=== PATIENT | male | born 1975 | race African-American/Black ===

== ENCOUNTER 2016-09-11 01:54 | Emergency (ER) | payer MEDICAID, OTHER ==
[~2016-09-11] VITALS: Ht 180.3 cm; Wt 78.0 kg
[~2016-09-11 01:54] MED LIST: AMLO10TA PO; BUPR300T70 PO; DIVA500T1 PO; LISI2.5T12 PO; OLAN5TAB29 PO; SERT50TA PO
[2016-09-11 02:05] VITALS: BP 151/105
--- NOTE | 2016-09-11 02:15 | NUR ---
PATIENT PRESENTS TO ED WITH C/O ANXEITY AND DIFFICULTY SLEEPING X 3 DAYS . PT DENIES N/V/D; SKIN IS PINK/WARM/DRY; AAOX4 WITH EVEN AND STEADY GAIT; LUNGS CLEAR BL; HR EVEN AND REGULAR; PT DENIES ANY FEVER, CP, SOB, OR COUGH AT THIS TIME; PATIENT STATES PAIN OF 0/10 AT THIS TIME; VSS; PATIENT POSITIONED FOR COMFORT; HOB ELEVATED; BEDRAILS UP X2; BED DOWN. ER MD MADE AWARE OF PT STATUS.
--- NOTE | 2016-09-11 02:15 | NUR ---
TO ER BED 8
--- NOTE | 2016-09-11 02:16 | NUR ---
Patient being evaluated by physician DR OWENS at bedside.
[2016-09-11 02:35] VITALS: BP 149/94
--- NOTE | 2016-09-11 02:35 | NUR ---
Patient discharged with v/s stable. Written and verbal after care instructions given and explained. Patient alert, oriented and verbalized understanding of instructions. Ambulatory with steady gait. All questions addressed prior to discharge. ID band removed. Patient advised to follow up with PMD. Rx of ATIVAN 0.5MG given. Patient educated on indication of medication including possible reaction and side effects. Opportunity to ask questions provided and answered.
== END 2016-09-11 02:36 | disposition home or self-care (01) ==
LOC: MED 01:54
DX: F41.9 Anxiety disorder, unspecified (principal); I10 Essential (primary) hypertension; Z79.899 Other long term (current) drug therapy; Z59.0 Homelessness
CPT/HCPCS: 99283

== ENCOUNTER 2016-09-17 15:48 | Emergency (ER) | payer MEDICAID ==
[~2016-09-17] VITALS: Ht 180.3 cm; Wt 77.1 kg
[2016-09-17 15:50] VITALS: BP 173/119
--- NOTE | 2016-09-17 15:50 | NUR ---
PT BIBA TO BED 5.
--- NOTE | 2016-09-17 15:54 | NUR ---
Note undone in EDM - 09/17/16 at 1704 by MEDSS 40 YO MALE NYA FROM FIELD C/O NOT FEELING WELL D/T USING METHAMPHETAMINE AT [facility] THIS MORNING. HX: HTN/PSYCH ISSUES; PT A&OX4, BLIND IN RT EYE, LEFT EYE PERRL, BL LUNG SOUNDS CLEAR, RR EVEN/UNLABORED, SKIN IS WARM/DRY/INTACT; PT STATES BL UPPER ABDOMINAL PAIN, ACHING, RADIATES TO LOWER BACK, 7/10 X 3 DAYS. STATES HAS NAUSEA, BUT DENIES VOMITING/DIARRHEA; ABDOMEN SOFT, NON-TENDER, ACTIVE BOWEL SOUNDS X 4 QUADRANTS; STEADY GAIT; PT RESTING IN BED W/ HOB ELEVATED AND IN LOWEST POSITION; POSITIONED FOR COMFORT; ER MD MADE AWARE OF STATUS. WILL CONTINUE TO MONITOR.
--- NOTE | 2016-09-17 15:54 | NUR ---
40 YO MALE BIBA FROM FIELD C/O NOT FEELING WELL D/T USING METHAMPHETAMINE AT [facility] THIS MORNING. HX: HTN/PSYCH ISSUES; PT A&OX4, BLIND IN RT EYE, LEFT EYE PERRL, PT STATES HEARS VOICES TELLING HIM " I NEED TO GET OFF THE STREETS"; DENIES ANY IDEAS OF SUICIDAL IDEATION, HURTING SELF OR OTHERS AT THIS TIME; PT DENIES "VOICES" TELLING PT TO HURT SELF OR OTHERS AT THIS TIME BL LUNG SOUNDS CLEAR, RR EVEN/UNLABORED, SKIN IS WARM/DRY/INTACT; PT STATES BL UPPER ABDOMINAL PAIN, ACHING, RADIATES TO LOWER BACK, 7/10 X 3 DAYS. STATES HAS NAUSEA, BUT DENIES VOMITING/DIARRHEA; ABDOMEN SOFT, NON-TENDER, ACTIVE BOWEL SOUNDS X 4 QUADRANTS; STEADY GAIT; PT RESTING IN BED W/ HOB ELEVATED AND IN LOWEST POSITION; POSITIONED FOR COMFORT; ER MD MADE AWARE OF STATUS. WILL CONTINUE TO MONITOR.
[2016-09-17] MEDS ORDERED: LORazepam 1 MG TAB PO ONE (16:05)
[2016-09-17 17:04] VITALS: BP 148/89
--- NOTE | 2016-09-17 17:04 | NUR ---
Patient discharged with BP 148/89; DENIES HEADACHE, DIZZINESS, OR BLURRY VISION AT THIS TIME; ER MD DR. VIDES NOTIFIED. PT D/C stable. Written and verbal after care instructions given and explained.Patient alert, oriented and verbalized understanding of instructions. Ambulatory with steady gait. All questions addressed prior to discharge. ID band removed. Patient advised to follow up with PMD. Rx of VISTARIL given. Patient educated on indication of medication including possible reaction and side effects. Opportunity to ask questions provided and answered.
== END 2016-09-17 17:04 | disposition home or self-care (01) ==
LOC: MED 15:48
DX: F41.9 Anxiety disorder, unspecified (principal); T43.625A Adverse effect of amphetamines, initial encounter; F15.280 Other stimulant dependence with stimulant-induced anxiety disorder; H54.41 Blindness, right eye, normal vision left eye; I12.9 Hypertensive chronic kidney disease with stage 1 through stage 4 chronic kidney disease, or unspecified chronic kidney disease; F32.9 Major depressive disorder, single episode, unspecified; N18.9 Chronic kidney disease, unspecified; F17.210 Nicotine dependence, cigarettes, uncomplicated; Z71.6 Tobacco abuse counseling; Z79.899 Other long term (current) drug therapy; Y92.89 Other specified places as the place of occurrence of the external cause
CPT/HCPCS: 99283

== ENCOUNTER 2016-10-23 18:42 | Emergency (ER) | payer MEDICAID ==
[~2016-10-23] VITALS: Ht 185.4 cm; Wt 71.7 kg
--- NOTE | 2016-10-23 18:42 | NUR ---
Patient was BIBA at this time.
[2016-10-23 19:02] VITALS: BP 158/113
--- NOTE | 2016-10-23 19:16 | NUR ---
PATIENT TO LOBBY.ERMD MADE AWARE.NO DISTRESS.DENIES VOMITING,DENIES DIZZINESS
--- NOTE | 2016-10-23 21:20 | NUR ---
PATIENT LEFT WITHOUT BEING SEEN BY DR. REYES. NO FURTHER CARE PROVIDED FOR PATIENT.
== END 2016-10-23 21:20 | disposition left against medical advice (07) ==
LOC: MED 18:42
DX: R51 Headache (principal); Z53.21 Procedure and treatment not carried out due to patient leaving prior to being seen by health care provider

== ENCOUNTER 2016-10-30 10:25 | Emergency (ER) | payer OTHER ==
[~2016-10-30] VITALS: Ht 180.3 cm; Wt 77.6 kg
[~2016-10-30 10:25] MED LIST changes: -AMLO10TA PO; -BUPR300T70 PO; +DEPAKOTE ER500 MG PO; -DIVA500T1 PO; -LISI2.5T12 PO; +NORVASC10 MG PO; -OLAN5TAB29 PO; -SERT50TA PO; +WELLBUTRIN XL300 MG PO; +ZESTRIL2.5 MG PO; +ZOLOFT50 MG PO; +ZYPREXA5 MG PO
[2016-10-30 10:41] VITALS: BP 155/98
--- NOTE | 2016-10-30 11:45 | NUR ---
40/M BIB SELF FOR REQUESTING MEDICATION REFILL LISINOPRIL 20MG PO QD; HX OF HTN, CHRONIC KIDNEY DISEASE, OD BLIDNESS, BIPOLAR, MANIC DEPRESSION. DENIES N/V/D; SKIN IS PINK/WARM/DRY; AAOX4 WITH EVEN AND STEADY GAIT; LUNGS CLEAR BL; HR EVEN AND REGULAR; PT DENIES ANY FEVER, CP, SOB, OR COUGH AT THIS TIME; PATIENT STATES PAIN OF 0/10 AT THIS TIME; VSS; PATIENT POSITIONED FOR COMFORT; HOB ELEVATED; BEDRAILS UP X2; BED DOWN. ER MD MADE AWARE OF PT STATUS.
[2016-10-30 11:56] VITALS: BP 155/98
--- NOTE | 2016-10-30 11:56 | NUR ---
Patient discharged with v/s stable. Written and verbal after care instructions given and explained. Patient alert, oriented and verbalized understanding of instructions. Ambulatory with steady gait. All questions addressed prior to discharge. ID band removed. Patient advised to follow up with PMD. Rx of LISINOPRIL given. Patient educated on indication of medication including possible reaction and side effects. Opportunity to ask questions provided and answered.
== END 2016-10-30 11:56 | disposition home or self-care (01) ==
LOC: MED 10:25
DX: Z76.0 Encounter for issue of repeat prescription (principal); I10 Essential (primary) hypertension; F31.9 Bipolar disorder, unspecified

== ENCOUNTER 2016-11-19 12:35 | Emergency (ER) | payer OTHER ==
[~2016-11-19] VITALS: Ht 180.3 cm; Wt 77.6 kg
[~2016-11-19 12:35] MED LIST changes: -DEPAKOTE ER500 MG PO; +LISI2.5T12 PO; -NORVASC10 MG PO; -WELLBUTRIN XL300 MG PO; -ZESTRIL2.5 MG PO; -ZOLOFT50 MG PO; -ZYPREXA5 MG PO
[2016-11-19 12:36] VITALS: BP 143/94
--- NOTE | 2016-11-19 12:40 | NUR ---
Patient to bed 04.
--- NOTE | 2016-11-19 12:45 | NUR ---
PT PRESENTS TO ER FOR EVALUATION OF DIARRHEA X9 DAYS. PT STATES HE WAS HOSPITALIZED 1 WEEK AGO FOR OD OF LISINOPRIL AND THORAZINE. HX PSYCH, HTN. DENIES N/V; SKIN IS PINK/WARM/DRY; AAOX4 WITH EVEN AND STEADY GAIT; LUNGS CLEAR BL; HR EVEN AND REGULAR; PT DENIES ANY FEVER, CP, SOB, OR COUGH AT THIS TIME; PATIENT STATES PAIN OF 4/10 AT THIS TIME; VSS; PATIENT POSITIONED FOR COMFORT; HOB ELEVATED; BEDRAILS UP X2; BED DOWN. ER MD MADE AWARE OF PT STATUS.
--- NOTE | 2016-11-19 12:46 | NUR ---
Dr. Morales evaluating patient at bedside.
[2016-11-19] MEDS ORDERED: NACL 0.9% 1,000 ML IV ONE (12:51)
[2016-11-19] MEDS ORDERED: DICYCLOMINE 20 MG/2 ML VIAL IM ONE (12:55)
[2016-11-19 13:51] LABS: HEMATOCRIT 39.9 % (36-52); HEMOGLOBIN 12.6 g/dL (12.0-18.0); MEAN CORPUSCULAR HEMOGLOBIN 26 pg (27-31); MEAN CORPUSCULAR HGB CONC 32 g/dL (33-37); MEAN CORPUSCULAR VOLUME 83 fL (80-94); PLATELET COUNT (AUTO) 257 K/uL (140-450); RED CELL DISTRIBUTION WIDTH 14.1 % (11.6-13.7); WHITE BLOOD COUNT (AUTO) 5.2 K/uL (4.8-10.8)
[2016-11-19 13:52] LABS: ALBUMIN 3.4 g/dL (3.4-5.0); ANION GAP 17.3 (8-16); CARBON DIOXIDE 20.7 mmol/L (21-32); CREATININE 2.6 mg/dL (0.7-1.3); TOTAL BILIRUBIN 0.3 mg/dL (0.0-1.0); TOTAL PROTEIN, SERUM 8.4 g/dL (6.4-8.2)
--- NOTE | 2016-11-19 14:11 | NUR ---
AAO PT RESTING COMFORTABLY USING CELL PHONE NO C/O PAIN AT THIS TIME ON MONITOR, WILL CONTINUE TO MONITOR
[2016-11-19 14:12] LABS: LYMPHOCYTES % (MANUAL) 28 % (20-46); MONOCYTES % (MANUAL) 5 % (5-12); NEUTROPHILS % (MANUAL) 67 (43-65); PLATELET ESTIMATE ADEQUATE
[2016-11-19 14:48] VITALS: BP 141/94
--- NOTE | 2016-11-19 14:48 | NUR ---
Patient discharged with v/s stable. Written and verbal after care instructions given and explained. Patient alert, oriented and verbalized understanding of instructions. Ambulatory with steady gait. All questions addressed prior to discharge. ID band removed. Patient advised to follow up with PMD. Rx of LOPERAMIDE, BENTYL, LISINOPRIL given. Patient educated on indication of medication including possible reaction and side effects. Opportunity to ask questions provided and answered.
== END 2016-11-19 14:48 | disposition home or self-care (01) ==
LOC: MED 12:35
CPT/HCPCS: 36415; 80053; 83690; 85025; 96360; 96372; 99285; J0500; J7030

== ENCOUNTER 2017-09-15 18:32 | Emergency (ER) | payer OTHER ==
[~2017-09-15] VITALS: Ht 180.3 cm; Wt 78.5 kg
[2017-09-15 18:36] VITALS: BP 152/112
--- NOTE | 2017-09-15 19:00 | NUR ---
PT AMBULATED TO BED3
--- NOTE | 2017-09-15 19:20 | NUR ---
ASSUMED CARE OF PT AT THIS TIME. C/O LEFT LOW BACK PAIN W/DYSURIA X 1 WEEK ROUNDING AND BACKING MACHINE OPERATOR. DENIES N/V/D; SKIN IS PINK/WARM/DRY; AAOX4 WITH EVEN AND STEADY GAIT; LUNGS CLEAR BL; HR EVEN AND REGULAR; PT DENIES ANY FEVER, CP, SOB, OR COUGH AT THIS TIME; PATIENT STATES PAIN OF 8/10 AT THIS TIME; VSS; PATIENT POSITIONED FOR COMFORT; HOB ELEVATED; BEDRAILS UP X2; BED DOWN. ER MD MADE AWARE OF PT STATUS.
[2017-09-15] MEDS ORDERED: KETOROLAC 60 MG/2 ML VIAL IM ONE (19:30)
[2017-09-15 19:45] VITALS: BP 148/99
--- NOTE | 2017-09-15 19:45 | NUR ---
Patient discharged with v/s stable. Written and verbal after care instructions given and explained. Patient alert, oriented and verbalized understanding of instructions. Ambulatory with steady gait. PT REFUSED TO SIGN DISCHARGE INSTRUCTIONS. ID band removed. Patient advised to follow up with PMD. Rx of MOTRIN given. Patient educated on indication of medication including possible reaction and side effects.
== END 2017-09-15 19:45 | disposition home or self-care (01) ==
LOC: MED 18:32
DX: M54.5 Low back pain (principal); I10 Essential (primary) hypertension; F17.210 Nicotine dependence, cigarettes, uncomplicated
CPT/HCPCS: 81002; 96372; 99283; J1885

== ENCOUNTER 2017-09-18 17:55 | Emergency (ER) | payer OTHER ==
[~2017-09-18] VITALS: Ht 180.3 cm; Wt 79.4 kg
[2017-09-18 17:57] VITALS: BP 158/90
--- NOTE | 2017-09-18 18:09 | NUR ---
Patient ambulated to chair A. RN evaluating patient.
--- NOTE | 2017-09-18 18:11 | NUR ---
Dr. Ojeda evaluating patient.
--- NOTE | 2017-09-18 18:13 | NUR ---
41Y/M BIB SELF FOR MEDICATION REFILL, HE LOST HIS MEDICATION PRESCRIPTION . ER MD MADE AWARE OF PT STATUS.
--- NOTE | 2017-09-18 18:26 | NUR ---
Patient discharged with v/s stable. Written and verbal after care instructions given and explained. Patient alert, oriented and verbalized understanding of instructions. Ambulatory with steady gait. All questions addressed prior to discharge. ID band removed. Patient advised to follow up with PMD. Rx of CLONAZEPAM given. Patient educated on indication of medication including possible reaction and side effects. Opportunity to ask questions provided and answered.
[2017-09-18 18:27] VITALS: BP 158/90
== END 2017-09-18 18:26 | disposition home or self-care (01) ==
LOC: MED 17:55
DX: F41.0 Panic disorder [episodic paroxysmal anxiety] (principal); Z76.0 Encounter for issue of repeat prescription; I10 Essential (primary) hypertension
CPT/HCPCS: 99283

== ENCOUNTER 2018-02-18 15:56 | Inpatient (IN) | payer OTHER ==
[~2018-02-18] VITALS: Ht 175.3 cm; Wt 73.9 kg
--- NOTE | 2018-02-18 07:25 | NUR ---
RUPERTO BOOKER PT OBSERVED TO BE SITTING UP & ATTEMPTING TO GET UP FROM BED. PT ORIENTED TO PRESENT, ASKED IF HE NEEDS ASSISTANCE, PT YELLED "I'M NOT AT THE HOSPITAL!" & YELLING OTHER UNINTELLIGIBLE WORDS WITH SOME PROFANITIES, & REMOVED HIS INTERMISSION COORDINATOR. WHILE TALKING TO PT, PT SWUNG BOTH ARMS OUT AT EMULSION COATER. PT STOOD UP FROM BED, PACING THE ROOM WITH VERY UNSTEADY GAIT, SWINGING HIS ARMS AT STAFF. RUPERTO BOOKER PAGED WHILE MAINTAINING PT SAFETY. NURSING CENTRALIZED TRAFFIC CONTROL OPERATOR, EVS PERSONNEL, RT, CHARGE NURSE ARRIVED AT BEDSIDE. PT WAS GUIDED TO THE BED BY STAFF VIA 2-PERSON MIN ASSIST. PT OBSERVED TO HAVE MUSCLE TREMORS, DISORIENTATION, & DELUSIONS. PT TRANSPORTED VIA BED TO ICU PER MECHANICAL DETAILER RECOMMENDATION. Addendum: 02/18/18 at 2217 by Noreen Lowry RN WRONG TIME INPUT. TIME OF EVENT WAS 02/18/18 @ 1924
--- NOTE | 2018-02-18 15:58 | NUR ---
1556 PT BIBA ALS TO ER BED 10
[2018-02-18 16:07] VITALS: BP 159/103
--- NOTE | 2018-02-18 16:11 | NUR ---
PUPIL R EYE BLIND. PUPIL LEFT EYE 1 MM NON REACT.
--- NOTE | 2018-02-18 16:11 | NUR ---
PT BIBA C/O WALKING INTO RESTRAUNT AND SITTING ON BENCH, SERVERS WERE UNABLE TO WAKE HIM UP AND CALLED 911. ON EMS ARRIVAL PT WAS A/OX0, NONVERBAL, GCS 7 ON ARRIVAL. PUPILS 2 AND SLUGGISH. PT INCONTINENT. HX: PSYCH/UNKOWN MEDS: UNK
[2018-02-18] MEDS ORDERED: SERT100T PO (16:31)
[2018-02-18] MEDS ORDERED: AMLO5TAB PO (16:31)
[2018-02-18] MEDS ORDERED: OLAN7.5T1 PO (16:31)
--- NOTE | 2018-02-18 16:40 | NUR ---
STRAIT CATH URINE YELLOW 100 ML, SENT SPECIMEN TO LAB.
[2018-02-18 16:41] LABS: BASOPHILS % (AUTO) 0.3 % (0.0-2.0); EOSINOPHILS % (AUTO) 0.3 % (0.0-4.0); HEMATOCRIT 41.7 % (36-52); HEMOGLOBIN 13.1 g/dL (12.0-18.0); LYMPHOCYTES # (AUTO) 0.3 K/uL (2.0-11.5); LYMPHOCYTES % (AUTO) 9.5 % (20.5-51.1); MEAN CORPUSCULAR HEMOGLOBIN 27 pg (27-31); MEAN CORPUSCULAR HGB CONC 32 g/dL (33-37); MEAN CORPUSCULAR VOLUME 85.2 fL (80-94); MONOCYTES # (AUTO) 0.2 K/uL (0.8-1.0); NEUTROPHILS # (AUTO) 3.1 K/uL (1.8-7.7); NEUTROPHILS % (AUTO) 84.9 % (42.2-75.2); PLATELET COUNT (AUTO) 175 K/uL (140-450); RED CELL DISTRIBUTION WIDTH 16.6 % (11.6-13.7); WHITE BLOOD COUNT (AUTO) 3.7 K/uL (4.8-10.8)
[2018-02-18 16:42] LABS: APPEARANCE,URINE CLEAR (CLEAR); BILIRUBIN,URINE NEGATIVE (NEGATIVE); BLOOD, URINE TRACE-I (NEGATIVE); COLOR,URINE YELLOW (YELLOW); LEUKOCYTE ESTERASE ,URINE NEGATIVE (NEGATIVE); NITRITE, URINE NEGATIVE (NEGATIVE); PH,URINE 5.5 (5.0-9.0); UGLUCOSE NEGATIVE (NEGATIVE)
[2018-02-18 16:50] LABS: RBC,URINE 0-5 (RARE) /HPF (0-5); WBC,URINE NONE SEEN /HPF (0-5)
--- NOTE | 2018-02-18 16:57 | NUR ---
PT TAKEN TO CT VIA [facility] ACCOMPANIED BY WOOD BOAT BUILDER SUPERVISOR.
[2018-02-18 17:03] LABS: ANION GAP 18.4 (8-16); CARBON DIOXIDE 20.8 mmol/L (21-32); CHLORIDE 101 mmol/L (98-107); GFR ARICAN-AMERICAN 21 mL/min (>90); GLUCOSE 100 mg/dL (74-106); POTASSIUM 4.2 mmol/L (3.5-5.1); SODIUM SERUM 136 mmol/L (136-145); UREA NITROGEN, BLOOD 48 mg/dL (7-18)
[2018-02-18 17:07] LABS: BARBITURATE, URINE NEG. ng/ml (NEG <=200); BENZODIAZEPINE, URINE NEG. ng/mL (NEG <=200); CANNABINOID, URINE NEG. ng/mL (NEG <=50); COCAINE, URINE NEG. ng/mL (NEG <=300); OPIATE, URINE NEG. ng/mL (NEG <=2000); PHENCYCLIDINE SCREEN,URINE NEG. ng/mL (NEG <=25)
[2018-02-18 17:07] LABS: ALBUMIN 4.1 g/dL (3.4-5.0); ASPARTATE AMINOTRANSFERASE 32 U/L (15-37); SALICYLATE 2.9 mg/dL (2.8-20.0); TOTAL BILIRUBIN 0.5 mg/dL (0.0-1.0)
[2018-02-18 17:09] LABS: CREATININE 4.1 mg/dL (0.7-1.3)
[2018-02-18] MEDS ORDERED: NACL 0.9% 1,000 ML IV ONE (17:15)
[2018-02-18 17:16] LABS: ACETAMINOPHEN < 0.5 ug/ml (10-30)
--- NOTE | 2018-02-18 18:20 | NUR ---
PT RESPONDS TO PHYSICAL STIMULATE BY CHECKING SHOULDER; PT MOVE BOTH ARMS & BOTH LEGS. PUPIL L EYE 1MM NON REACT TO LIGHT. PT DOES NOT OPEN HIS EYES.
--- NOTE | 2018-02-18 18:23 | NUR ---
Patient being evaluated by DR CLEVELAND at bedside.
--- NOTE | 2018-02-18 19:08 | NUR ---
Patient will be admitted to care of DR LEE. Admited to [facility]. Will go to room 107A. Belongings list completed. Report to ERICK KAUFFMAN.
--- NOTE | 2018-02-18 19:10 | NUR ---
PT ARRIVED AT RM 107A FROM ER VIA [facility] ACCOMPANIED BY TECH & RN. PT DROWSY AT TIME OF ARRIVAL, MUMBLING, & RESTLESS. PT TRANSFERRED FROM [facility] TO BED VIA 3-PERSON TOTAL ASSIST. BEDSIDE REPORT RECEIVED FROM STEPHEN KAUFFMAN. LEFT AC & RIGHT AC SALINE LOCK IV INTACT. PER STEPHEN, RT AC IV ACCESS NOT FLUSHING. MANAGER OF ENVIRONMENTAL SERVICES APPLIED. PT ORIENTED TO ROOM & UNIT. PT MUMBLING, UNABLE TO RETURN DEMONSTRATE SIMPLE INSTRUCTIONS. PT RESTLESS & SITTING UP THEN LYING BACK DOWN REPEATEDLY WITH EYES CLOSED. FALL PRECAUTIONS INITIATED: CHANGED TO YELLOW HOSPITAL GOWN, APPLIED YELLOW ARM BAND, POSTED YELLOW SIGN AT DOOR, BED IN LOWEST POSITION WITH BED ALARM ON. CALL LIGHT PLACED WITHIN REACH.
--- NOTE | 2018-02-18 19:25 | NUR ---
RUPERTO BOOKER PT OBSERVED TO BE SITTING UP & ATTEMPTING TO GET UP FROM BED. PT ORIENTED TO PRESENT, ASKED IF HE NEEDS ASSISTANCE, PT YELLED "I'M NOT AT THE HOSPITAL!" & YELLING OTHER UNINTELLIGIBLE WORDS WITH SOME PROFANITIES, & REMOVED HIS BULB SORTER. WHILE TALKING TO PT, PT SWUNG BOTH ARMS OUT AT THORACIC SURGEON. PT STOOD UP FROM BED, PACING THE ROOM WITH VERY UNSTEADY GAIT, SWINGING HIS ARMS AT STAFF. RUPERTO BOOKER PAGED WHILE MAINTAINING PT SAFETY. NURSING LEISURE STUDIES PROFESSOR, EVS PERSONNEL, RT, CHARGE NURSE ARRIVED AT BEDSIDE. PT WAS GUIDED TO THE BED BY STAFF VIA 2-PERSON MIN ASSIST. PT OBSERVED TO HAVE MUSCLE TREMORS, DISORIENTATION, & DELUSIONS. PT TRANSPORTED VIA BED TO ICU PER SINTERING PLANT SUPERVISOR RECOMMENDATION.
--- NOTE | 2018-02-18 19:34 | NUR ---
PT @ ICU, BEDSIDE REPORT GIVEN TO ICU NURSE.
--- NOTE | 2018-02-18 19:35 | NUR ---
RECEIVED PT FROM TELE NURSE ACCOMPANIED BY BLENDING LINE ATTENDANT AND SECURITY. PT WAS HAVING AGGRESSIVE BEHAVIOR, ON TELE FLOOR, RUPERTO CORDOBA WAS CALLED, PT THEN TRANSFERRED TO ICU.
--- NOTE | 2018-02-18 19:36 | NUR ---
DR GEETA GONSALES MD EN ROUTE TO HOSPITAL. WILL CONTINUE TO OBSERVE.
--- NOTE | 2018-02-18 19:40 | NUR ---
PT AWAKE AND THEN FALLS ASLEEP, WHILE AWAKE PT IS HALLUCINATING AND SHOWING AGGRESSIVE BEHAVIOR, CLENCHING FISTS, AND GRINDING TEETH. PT REORIENTED TO HOPSITAL. PT R EYE OPAQUE NON REACTIVE, L EYE +2 MM SLUGGISH. LUNGS CLEAR BILATTERALLY. S1 S2 SINUS TACHYCARDIA ON BEDSIDE MONITOR. ABDOMEN TIGHT, SLIGHT DISTENTION NOTED, PT INCONTINENT TO URINE. SKIN INTACT. PERIPHERAL IV TO L UPPER ARM NOTED, R AC IV DISCONTINUED. ALL SAFETY PRECAUTIONS IN PLACE, BED LOCKED IN LOWEST POSITION. PT WILL NOT FOLLOW COMMANDS @ THIS TIME. WILL CONTINUE TO MONITOR.
[2018-02-18 20:00] VITALS: BP 124/105
--- NOTE | 2018-02-18 20:05 | NUR ---
DR CONNOR CALLED 2ND PAGE. PT CONTINUES TO HAVE TREMORS AND HALLUCINATIONS, MUMBLING INCOHERENT WORDS. PT REORIENTED TO HOSPITAL SETTING, PT REFUSED, YELLED, " I AM NOT AT THE HOSPITAL!" HR 110 BP 178/16 100% ON ROOM AIR. RR 25. ALL SAFETY PRECAUTIONS IN PLACE, BED IN LOWEST POSITION AND LOCKED.
--- NOTE | 2018-02-18 20:11 | NUR ---
DR CONNOR RETURNED PHONE CALL, ADMIT ORDERS MEDS. GIVEN. SEE ORDER HISTORY FOR DETAILS.
[2018-02-18] MEDS: DEXT 5% / NACL 0.45% 1,000 ML IV SCH (21:03)
[2018-02-18] MEDS: LORazepam 2 MG/ML VIAL IVP PRN ×2 (21:15→23:31)
[2018-02-18] MEDS: cloNIDine 0.1 MG TAB PO PRN (21:15)
--- NOTE | 2018-02-18 21:15 | NUR ---
PT AGITATED; AGGRESSIVE, MUMBLING SOUNDS. PRN ATIVAN GIVEN. WILL CONTINUE TO OBSERVE.
--- NOTE | 2018-02-18 21:38 | NUR ---
PT NOW CALM, SEDATED, LAYING SUPINE IN BED, RESTRAINTS IN PLACE, NO ACUTE DISTRESS NOTED. WILL CONTINUE TO OBSERVE.
[2018-02-18] MEDS ORDERED: OLANZapine 5 MG ODT PO ONE (21:53)
[2018-02-18] MEDS: OLANZapine 5 MG TAB PO SCH (21:54)
[2018-02-18 22:00] VITALS: BP 161/103
--- NOTE | 2018-02-18 23:30 | NUR ---
PT WOKE UP CONFUSED, DISORIENTED, AGITATED, NOT FOLLOWING COMMANDS. REORIENTED PT, PT CONTINUES TO PULL AT RESTRAINTS AND TRY TO PULL IV AND BITE PULSE OX. PRN ATIVAN GIVEN. WILL CONTINUE TO OBSERVE.
[2018-02-19] VITALS (75 sets, daily range): BP systolic 94–208; BP diastolic 45–127
--- NOTE | 2018-02-19 00:23 | NUR ---
PT SEDATED, EYES CLOSED, NO ACUTE DISTRESS NOTED. HR 81 99% SPO2 RR 1 BP 156/105. WILL CONTINUE TO OBSERVE.
[2018-02-19] MEDS: cloNIDine 0.1 MG TAB PO PRN (03:07)
[2018-02-19] MEDS ORDERED: hydrALAZINE 25 MG TAB PO PRN (03:35)
--- NOTE | 2018-02-19 03:36 | NUR ---
PHONE CALL TO DR ALVA; UPDATED ON PTS PRESENT CONDITION.MADE AWARE OF PTS BP EVEN AFTER CLONIDINE P.O WAS GIVEN; ALSO READ BACK LAB RESULTS. NEW ORDER RECEIVED.CARRIED OUT.
[2018-02-19] MEDS: LORazepam 2 MG/ML VIAL IVP PRN ×2 (03:55→17:15)
[2018-02-19 04:49] LABS: BASOPHILS % (AUTO) 0.8 % (0.0-2.0); EOSINOPHILS # (AUTO) 0.1 K/uL (0-0.4); EOSINOPHILS % (AUTO) 1.8 % (0.0-4.0); HEMATOCRIT 40.5 % (36-52); LYMPHOCYTES # (AUTO) 0.9 K/uL (2.0-11.5); LYMPHOCYTES % (AUTO) 15.3 % (20.5-51.1); MEAN CORPUSCULAR HEMOGLOBIN 27 pg (27-31); MEAN CORPUSCULAR HGB CONC 32 g/dL (33-37); MEAN CORPUSCULAR VOLUME 84.6 fL (80-94); MONOCYTES # (AUTO) 0.5 K/uL (0.8-1.0); MONOCYTES % (AUTO) 8.4 % (1.7-9.3); NEUTROPHILS # (AUTO) 4.3 K/uL (1.8-7.7); NEUTROPHILS % (AUTO) 73.7 % (42.2-75.2); PLATELET COUNT (AUTO) 192 K/uL (140-450); RED BLOOD CELL COUNT(AUTO) 4.79 MIL/uL (4.20-6.10); RED CELL DISTRIBUTION WIDTH 16.2 % (11.6-13.7); WHITE BLOOD COUNT (AUTO) 5.9 K/uL (4.8-10.8)
--- NOTE | 2018-02-19 04:55 | NUR ---
NOTIFIED DR. ALVA OF ELEVATED BLOOD PRESSURE AFTER PRN HYDRALAZINE; 188/128, STATED TO START CARDENE DRIP. CALLED GUEST RELATIONS AGENT AND ANALYTICS LEAD PHARMACIST; MED UNAVAILABLE @ THIS TIME. CALLED TO INFORM THAT CARDENE DRIP UNAVAILABLE, NITRO DRIP ORDERED. WILL CARRY OUT ORDERS.
[2018-02-19] MEDS ORDERED: NITROGLYCERIN 50 MG/D5W PREMIX 250 ML IV PRN (05:00)
[2018-02-19] MEDS ORDERED: METOCLOPRAMIDE 10 MG/2 ML INJ VIAL IVP PRN (05:00)
--- NOTE | 2018-02-19 06:00 | NUR ---
IV TO L UPPER ARM INFILTRATED. AFFECTED ARM ELEVATED. NEW IV STARTED ON R HAND.
--- NOTE | 2018-02-19 06:00 | NUR ---
NITRO GTT STARTED; NO ACUTE DISTRESS AT THIS TIME. PT CONTINUES TO MUMBLE AND NOT FOLLOW COMMANDS. WILL CONTINUE TO OBSERVE.
--- NOTE | 2018-02-19 06:16 | NUR ---
PATIENT HAS BEEN SCREENED AND CATEGORIZED LOW NUTRITION RISK. PATIENT WILL BE SEEN WITHIN 7 DAYS OF ADMISSION. 02/24/18 LISA CROWDER MS, RDN
--- NOTE | 2018-02-19 06:45 | NUR ---
NITRO DRIP LEFT @ 15 MCG/MIN. BP 145/84. HR 90 100% SPO2. NO ACUTE DISTRESS NOTED. WILL CONTINUE TO OBSERVE.
[2018-02-19 06:51] LABS: ALBUMIN 3.8 g/dL (3.4-5.0); ANION GAP 13.3 (8-16); CARBON DIOXIDE 24.9 mmol/L (21-32); CREATININE 3.6 mg/dL (0.7-1.3); POTASSIUM 4.2 mmol/L (3.5-5.1); TOTAL BILIRUBIN 0.7 mg/dL (0.0-1.0)
--- NOTE | 2018-02-19 07:10 | NUR ---
RECEIVED BEDSIDE REPORT FROM NIKOLE DIABETES MANAGER RN, FOR CONTINUITY OF CARE. PATIENT IS ASLEEP, AAOX1, UNABLE TO FOLLOW SIMPLE COMMANDS.PATIENT IS ON SOFT WRIST RESTRAINTS, PATIENT'S SAFETY IS ASSESSED AND ENFORCED. PATIENT'S SKIN IS INTACT, WARM AND DRY, PERIPHERAL IV SITE TO RIGHT HAND, ASYMPTOMATIC, PATENT, INTACT. PATIENT IS ON NITRO DRIP AT 15MCG/MIN AND D51/2NS AT 75ML/HR. VS STABLE, FLACC 0. PATIENT HAS JON CATHETER IN PLACE TO CLEAR YELLOW URINE. HOB IS SEMI FOWLERS IN A LOW POSITION, CALL LIGHT WITHIN REACH. NO SIGNS OF DISTRESS NOTED AT THIS TIME. WILL CONTINUE TO MONITOR
--- NOTE | 2018-02-19 07:12 | NUR ---
REPORT GIVEN TO DAY SHIFT FOR CONTINUITY OF CARE.
--- NOTE | 2018-02-19 08:30 | NUR ---
DR. ALVA IN TO SEE AND EXAMINE PATIENT, UPDATED ON PATIENT'S CONDITION. WILL FOLLOW UP ON ANY ORDERS
[2018-02-19] MEDS ORDERED: amLODIPine 5 MG TAB PO SCH (09:00)
--- NOTE | 2018-02-19 09:30 | NUR ---
IN TO SEE AND EXAMINE PATIENT, UPDATED ON PATIENT'S CONDITION. WILL FOLLOW UP ON ANY ORDERS
[2018-02-19] MEDS: DEXT 5% / NACL 0.45% 1,000 ML IV SCH ×2 (09:38→22:08)
--- NOTE | 2018-02-19 09:46 | NUR ---
RECEIVED ORDER FROM DR. CONNOR FOR LISINOPRIL 5MG DAILY PO, DR IS AWARE PATIENT IS ON NITRO DRIP.
[2018-02-19] MEDS: ISOSORBIDE MONONITRATE 30 MG TABER PO SCH ×2 (10:22→20:04)
[2018-02-19] MEDS: amLODIPine 5 MG TAB PO SCH (10:23)
[2018-02-19] MEDS: OLANZapine 5 MG TAB PO SCH ×2 (10:23→20:05)
[2018-02-19] MEDS: SERTRALINE 50 MG TAB PO SCH (10:24)
--- NOTE | 2018-02-19 10:28 | NUR ---
PATIENT IS AAOX1, ABLE TO FOLLOW SIMPLE COMMANDS. PATIENT STILL AGITATED, HOWEVER, PATIENT WAS REORIENTED AND EDUCATED ON MEDICATIONS, SCHEDULED MEDS ADMINISTERED. PATIENT TOLERATED WELL. WILL CONTINUE TO MONITOR
--- NOTE | 2018-02-19 11:01 | NUR ---
DR. LEE IN TO SEE AND EXAMINE PATIENT. UPDATED ON PATIENT'S CONDITION, WILL FOLLOW UP WITH ANY ORDERS.
--- NOTE | 2018-02-19 11:33 | NUR ---
DR. LARIOS WAS CALLED REGARDING CONSULTATION FOR PATIENT, UPDATED ON PATIENT'S CONDITION, STATES THAT HE WILL COME IN TOMORROW TO SEE PATIENT.
[2018-02-19] MEDS: hydrALAZINE 25 MG TAB PO SCH ×3 (12:18→23:28)
--- NOTE | 2018-02-19 13:25 | NUR ---
Dovetailer Notes: These journalists and other writers attempted to meet and talk to Patient for a screen, to gather, provide information. and resources to Patient. Patient with much efforts attempted to wake up for a second but was unable to stay awake or answer any questions.
--- NOTE | 2018-02-19 13:27 | NUR ---
TIN DIPPER AT BEDSIDE TO SPEAK WITH PATIENT HOWEVER PATIENT IS STILL LETHARGIC AND UNABLE TO ANSWER QUESTIONS
[2018-02-19] MEDS ORDERED: PROBIOTIC SCREEN 1 EA MISC MC PRN (13:45)
--- NOTE | 2018-02-19 14:33 | NUR ---
PATIENT REORIENTED TO ENVIRONMENT, ABLE TO FOLLOW COMMANDS, RESTRAINTS REMOVED. NO SIGNS OF INJURY, NO SIGNS OF DISTRESS AT THIS TIME.
[2018-02-19 15:57] LABS: CREATINE KINASE MB 3.9 ng/mL (0-3.6)
[2018-02-19 16:00] LABS: CKMB RELATIVE INDEX 0.9 (0.0-2.5)
--- NOTE | 2018-02-19 17:22 | NUR ---
PATIENT AWAKE AND RESTLESS, STATES HE NEEDS SOMETHING TO MAKE HIM CALM, ADMINISTERED PRN ATIVAN 1MG. PATIENT TOLERATED WELL. WILL CONTINUE TO MONITOR
--- NOTE | 2018-02-19 19:09 | NUR ---
ENDORSED CONTINUITY OF CARE TO KEREN CARD CHECKER RN, NO SIGNS OF DISTRESS NOTED AT THIS TIME.
--- NOTE | 2018-02-19 19:20 | NUR ---
RECEIVED BEDSIDE REPORT FROM MORNING SHIFT RN. PATIENT IS ASLEEP, AAOX1, AROUSABLE TO NAME, UNABLE TO FOLLOW SIMPLE COMMANDS. PATIENT ON ROOM AIR, BILATERAL LUNGS SOUNDS CLEAR. PATIENT'S SKIN IS INTACT, WARM TO TOUCH. PERIPHERAL IV SITE TO RIGHT HAND 22G, ASYMPTOMATIC, PATENT, INTACT. PATIENT IS ON NITRO DRIP AT 30MCG/MIN AND D5 1/2NS AT 75ML/HR. VS STABLE, SR ON THE MONITOR, FLACC 0. PATIENT HAS JON CATHETER IN PLACE TO CLEAR YELLOW URINE. HOB IS SEMI FOWLERS IN A LOW POSITION, CALL LIGHT WITHIN REACH. NO SIGNS OF DISTRESS NOTED AT THIS TIME. WILL CONTINUE TO MONITOR
--- NOTE | 2018-02-19 20:15 | NUR ---
PATIENT AWOKE UP AND ATE DINNER. AAO X 2, VERBALLY RESPONSIVE. TOLERATED WELL WITH DINNER. ADMINISTERED SCHEDULED MEDICATIONS ORDERED. NO ACUTE DISTRESS NOTED. WILL CONTINUE TO MONITOR.
--- NOTE | 2018-02-19 20:45 | NUR ---
phone call made to after hours pharmacy; spoke with [facility] pharmacist.informed that sbp below 100; nitro drip on hold; per pharmacist; do not restart nitro drip until sbp goes up to 160
--- NOTE | 2018-02-19 23:30 | NUR ---
ADMINISTERED SCHEDULED ANTIHYPERTENSIVE MEDICATION ORDERED. NO ACUTE DISTRESS NOTED. BP 127/75 NOTED. CONTINUE TO HOLD NITROGLYCERIN DRIP. WILL CONTINUE TO MONITOR.
[2018-02-20] VITALS (19 sets, daily range): BP systolic 90–140; BP diastolic 59–77
--- NOTE | 2018-02-20 02:11 | NUR ---
PATIENT REQUESTED SANDWICHES AND HE FEELS HUNGRY. PROVIDED FOOD TO PATIENT. PATIENT ATE TUNA SANDWICHES AND 2 PACKS OF JUICE. NO ACUTE DISTRESS NOTED. WILL CONTINUE TO MONITOR.
--- NOTE | 2018-02-20 03:40 | NUR ---
PATIENT COMPLAINED RESTLESSNESS. ADMINISTERED PRN ATIVAN ORDERED. DENIED PAIN AT THIS TIME. WILL CONTINUE TO MONITOR.
[2018-02-20] MEDS: LORazepam 2 MG/ML VIAL IVP PRN (03:45)
[2018-02-20] MEDS: hydrALAZINE 25 MG TAB PO SCH ×3 (06:00→17:21)
--- NOTE | 2018-02-20 06:20 | NUR ---
SPOKE WITH REGARDING PARAMETER FOR HYDRALAZINE BECAUSE THERE IS NO PARAMETER AND PATIENT'S SBP BELOW 110 AT THIS TIME. RECEIVED PARAMETER; HOLD IF SBP BELOW 120. HOLD HYDRALAZINE AT THIS TIME.
--- NOTE | 2018-02-20 07:04 | NUR ---
RECEIVED BEDSIDE REPORT FROM KEREN KILN FIRER RN FOR CONTINUITY OF CARE. PATIENT IS AWAKE, AAOX2, ABLE TO FOLLOW COMMANDS AND MAKE NEEDS KNOWN. PATIENT SKIN IS INTACT, WARM AND DRY, HE HAS A PERIPHERAL IV SITE TO RIGHT HAND, ASYMPTOMATIC, PATENT, INTACT. PER KILN FIRER RN, PATIENT WAS OFF NITROGLYCERIN DRIP SINCE 2099, PATIENT TOLERATING WELL. ON ROOM AIR, BREATHING IS EVEN AND UNLABORED. ST ON MONITOR, BP 140/60, DENIES ANY PAIN. PATIENT HAS JON CATHETER IN PLACE TO CLEAR LIGHT YELLOW URINE. HOB IS 45 DEGREES IN A LOW POSITION, CALL LIGHT WITHIN REACH. ALL SAFETY PRECAUTIONS ASSESSED AND ENFORCED. NO SIGNS OF DISTRESS NOTED. WILL CONTINUE TO MONITOR
--- NOTE | 2018-02-20 07:10 | NUR ---
REPORT GIVEN TO MORNING NURSE FOR CONTINUITY OF CARE.
--- NOTE | 2018-02-20 07:22 | NUR ---
PROVIDED BREAKFAST TRAY, PATIENT IS AWAKE AND EATING WHILE WATCHING TV.
[2018-02-20 07:53] LABS: BASOPHILS % (AUTO) 0.8 % (0.0-2.0); EOSINOPHILS # (AUTO) 0.1 K/uL (0-0.4); EOSINOPHILS % (AUTO) 2.6 % (0.0-4.0); HEMOGLOBIN 11.7 g/dL (12.0-18.0); LYMPHOCYTES # (AUTO) 1.2 K/uL (2.0-11.5); LYMPHOCYTES % (AUTO) 24.6 % (20.5-51.1); MEAN CORPUSCULAR HEMOGLOBIN 27 pg (27-31); MEAN CORPUSCULAR HGB CONC 32 g/dL (33-37); MEAN CORPUSCULAR VOLUME 84.5 fL (80-94); MONOCYTES # (AUTO) 0.5 K/uL (0.8-1.0); MONOCYTES % (AUTO) 10.1 % (1.7-9.3); NEUTROPHILS # (AUTO) 3.1 K/uL (1.8-7.7); NEUTROPHILS % (AUTO) 61.9 % (42.2-75.2); PLATELET COUNT (AUTO) 185 K/uL (140-450); RED BLOOD CELL COUNT(AUTO) 4.27 MIL/uL (4.20-6.10); RED CELL DISTRIBUTION WIDTH 15.9 % (11.6-13.7)
--- NOTE | 2018-02-20 08:01 | NUR ---
DR. ALVA IN TO SEE AND EXAMINE PATIENT, UPDATED ON PATIENT'S CONDITION. WILL FOLLOW UP ON ANY ORDERS.
[2018-02-20 08:02] LABS: ANION GAP 10.1 (8-16); CARBON DIOXIDE 25.8 mmol/L (21-32); CREATININE 3.3 mg/dL (0.7-1.3); POTASSIUM 3.9 mmol/L (3.5-5.1); TOTAL BILIRUBIN 0.3 mg/dL (0.0-1.0)
--- NOTE | 2018-02-20 08:07 | NUR ---
ADMINISTERED SCHEDULED MEDS, PATIENT TOLERATED WELL. DENIES ANY PAIN AT THIS TIME.
[2018-02-20] MEDS: amLODIPine 5 MG TAB PO SCH (08:08)
[2018-02-20] MEDS: ISOSORBIDE MONONITRATE 30 MG TABER PO SCH ×2 (08:08→20:57)
[2018-02-20] MEDS: LISINOPRIL 5 MG TAB PO SCH (08:08)
[2018-02-20] MEDS: OLANZapine 5 MG TAB PO SCH ×2 (08:09→20:57)
[2018-02-20] MEDS: SERTRALINE 50 MG TAB PO SCH (08:11)
--- NOTE | 2018-02-20 09:27 | NUR ---
AT BEDSIDE TO EVALUATE PATIENT, UPDATED ON PATIENT'S CONDITION. WILL FOLLOW UP ON ANY ORDERS.
[2018-02-20] MEDS ORDERED: ISOS30TE35 PO (10:11)
[2018-02-20] MEDS ORDERED: AMLO5TAB4 PO (10:11)
[2018-02-20] MEDS ORDERED: LISI-424 PO (10:11)
--- NOTE | 2018-02-20 10:18 | NUR ---
DR. LEE IN TO SEE AND EXAMINE PATIENT, UPDATED ON PATIENT'S CONDITION. WILL FOLLOW UP ON ORDERS.
--- NOTE | 2018-02-20 14:18 | NUR ---
DR. CONNOR IN TO SEE PATIENT, WILL FOLLOW UP ON ANY ORDERS
--- NOTE | 2018-02-20 19:18 | NUR ---
ENDORSED CONTINUITY OF CARE AT BEDSIDE TO [employer]ISATION MANAGER RN. NO SIGNS OF DISTRESS NOTED AT THIS TIME.
--- NOTE | 2018-02-20 19:25 | NUR ---
RECEIVED REPORT FROM MORNING SHIFT RN, ELOINA, FOR CONTINUITY OF CARE. PT IS AOX3-4, ABLE TO MAKE NEEDS KNOWN, IN STABLE CONDITION AT THIS TIME. BLINDNESS IN RIGHT EYE NOTED. PT IS ON ROOM AIR, LUNG SOUNDS CLEAR ON UPPER BILATERAL LOBES, DIMINISHED ON BILATERAL BASES. SINUS RHYTHM ON MONITOR. BOWEL SOUND ACTIVE ON AUSCULTATION. JON CATHETER IN PLACE, INTACT/PATENT URINE IS CLEAR/YELLOW. PT DENIES PAIN/NAUSEA AT THIS TIME. HOB ELEVATED TO 30DEG, PILLOW SUPPORT PROVIDED. D5- NS INFUSING AT 5ML/HR. TO RIGHT HAND 22 GAUGE. SKIN IS INTACT, NORMAL IN COLOR.
--- NOTE | 2018-02-20 20:45 | NUR ---
PT STATED THAT HE IS HUNGRY WAS GIVEN WATER, CRANBERRY JUICE, AND UMM CRACKERS. PT IS CALM AND COOPERATIVE AT THIS TIME.
--- NOTE | 2018-02-20 21:46 | NUR ---
PT SLEEPING & IN STABLE CONDITION.
[2018-02-21] VITALS: BP 107/75
--- NOTE | 2018-02-21 00:12 | NUR ---
TO HOLD HYDRALAZINE PER ORDER PARAMETERS, BP 107/65.
--- NOTE | 2018-02-21 03:10 | NUR ---
TRANSFERRED PATIENT TO TELEMETRY VIA JAMARI JOHNSTON & ACTIVITIES THERAPIST LAURIE. PT IS AWAKE AND IN STABLE CONDITION AT THIS TIME.
--- NOTE | 2018-02-21 03:30 | NUR ---
RECEIVED PT AAOX3 TRANSFER FROM ICU ON TELEMETRY SR, HL ON RT HAND GAUGE # 22 JON CATH DRAINING WELL YELLOW URINE SKIN IS INTACT NOT DISTRESS NOTED PT IS ORIENTED TO THE FLOOR CALL LIGHT WITHIN REACH
--- NOTE | 2018-02-21 03:32 | NUR ---
PROVIDED ENDORSEMENT TO [facility]UST NURSE FREDDIE RN VIA TELEPHONE FOR CONTINUITY OF CARE.
[2018-02-21 04:00] VITALS: BP 101/64
--- NOTE | 2018-02-21 05:22 | NUR ---
PT SLEEPING NOT SIGNS OF DISTRESS NOTED ON TELEMETRY SR, JON CATH DRAINING WELL YELLOW URINE
[2018-02-21] MEDS: hydrALAZINE 25 MG TAB PO SCH ×2 (06:00)
--- NOTE | 2018-02-21 06:00 | NUR ---
PT SLEEPING WELL HR 69 BP 106/59 NOT HIGH BP MEDIC GIVEN
--- NOTE | 2018-02-21 07:20 | NUR ---
RECEIVED REPORT FROM SENIOR SAFETY SUPPORT MANAGER RN. PT IS AAOX3-4, ABLE TO MAKE NEEDS KNOWN. BLINDNESS IN RIGHT EYE NOTED. PT IS ON ROOM AIR, LUNG SOUNDS CLEAR. SR ON TELE MONITOR. BOWEL SOUND ACTIVE ON AUSCULTATION. JON CATHETER IN PLACE, DRAINING CLEAR YELLOW URINE. IV SL, FLUSHED, INTACT AND PATENT. PT DENIES PAIN/NAUSEA AT THIS TIME. SKIN IS INTACT. FALL PRECAUTIONS IN PLACE, CALL LIGHT WITHIN REACH.
[2018-02-21 08:00] VITALS: BP 114/75
[2018-02-21] MEDS: SERTRALINE 50 MG TAB PO SCH (08:18)
[2018-02-21] MEDS: amLODIPine 5 MG TAB PO SCH (08:18)
[2018-02-21] MEDS: ISOSORBIDE MONONITRATE 30 MG TABER PO SCH (08:25)
[2018-02-21] MEDS: LISINOPRIL 5 MG TAB PO SCH (08:25)
--- NOTE | 2018-02-21 08:25 | NUR ---
PT REFUSED OLANZAPINE, LISINOPRIL AND ISOSORBIDE. RISK AND BENEFITS EXPLAINED. PT STILL REFUSING.
[2018-02-21] MEDS: OLANZapine 5 MG TAB PO SCH (08:26)
--- NOTE | 2018-02-21 09:13 | NUR ---
DUE TO CHANGE IN ADAM SCORE PATIENT HAS BEEN RE-SCREENED AND CATEGORIZED MODERATE NUTRITION RISK. PATIENT WILL BE SEEN WITHIN 3-5 DAYS OF ADMISSION. 02/21/18 02/23/[address]
[2018-02-21 10:40] LABS: BASOPHILS # (AUTO) 0.1 K/uL (0.00-0.22); BASOPHILS % (AUTO) 1.3 % (0.0-2.0); EOSINOPHILS # (AUTO) 0.3 K/uL (0-0.4); EOSINOPHILS % (AUTO) 6.1 % (0.0-4.0); HEMATOCRIT 36.9 % (36-52); HEMOGLOBIN 11.7 g/dL (12.0-18.0); LYMPHOCYTES # (AUTO) 0.9 K/uL (2.0-11.5); LYMPHOCYTES % (AUTO) 18.7 % (20.5-51.1); MEAN CORPUSCULAR HEMOGLOBIN 27 pg (27-31); MEAN CORPUSCULAR HGB CONC 32 g/dL (33-37); MONOCYTES # (AUTO) 0.6 K/uL (0.8-1.0); MONOCYTES % (AUTO) 12.5 % (1.7-9.3); NEUTROPHILS % (AUTO) 61.4 % (42.2-75.2); PLATELET COUNT (AUTO) 185 K/uL (140-450); RED BLOOD CELL COUNT(AUTO) 4.34 MIL/uL (4.20-6.10); RED CELL DISTRIBUTION WIDTH 16.4 % (11.6-13.7); WHITE BLOOD COUNT (AUTO) 4.9 K/uL (4.8-10.8)
--- NOTE | 2018-02-21 11:00 | NUR ---
PT DISCHARGE PER MD ORDER. DISCHARGE INSTRUCTIONS AND MEDICATION TEACHING PROVIDED. PT VERBALIZED UNDERSTANDING. JAIL AND DRUG ABUSE PROGRAM RESOURCES PROVIDED. PT VERBALIZED UNDERSTANDING. JON CATH AND IV CATH REMOVED BY PHOTOGRAPHER LITHOGRAPHIC PROJECT MANAGEMENT. PT TOLERATED WELL. PT OBTAINED ALL HIS BELONGINGS. SECURITY BROUGHT PT NEW PANTS. PT DRESSED BY HIMSELF. TELE BOX REMOVED. PT LEFT IN STABLE CONDITION.
[2018-02-21 11:03] LABS: ALBUMIN 2.9 g/dL (3.4-5.0); ANION GAP 11.3 (8-16); CARBON DIOXIDE 24.3 mmol/L (21-32); CREATININE 2.9 mg/dL (0.7-1.3); POTASSIUM 4.6 mmol/L (3.5-5.1); TOTAL BILIRUBIN 0.2 mg/dL (0.0-1.0)
--- NOTE | 2018-02-21 13:03 | NUR ---
CM NOTE INITIAL REVIEW FAXED TO [facility] [phone] HAKAN # [phone]
== END 2018-02-21 11:20 | disposition home or self-care (01) | DRG 469 ==
LOC: EDBD → MED 15:56 → MTU 18:45 → MIC 19:45 → MTU 02-21 03:15
PROVIDERS: ADMIT Hospitalist; ATTEND Hospitalist
DX: N17.9 Acute kidney failure, unspecified (principal); G93.41 Metabolic encephalopathy; F20.9 Schizophrenia, unspecified; Z78.1 Physical restraint status; I16.0 Hypertensive urgency; N18.4 Chronic kidney disease, stage 4 (severe); F15.10 Other stimulant abuse, uncomplicated; I12.9 Hypertensive chronic kidney disease with stage 1 through stage 4 chronic kidney disease, or unspecified chronic kidney disease; I16.1 Hypertensive emergency; F31.9 Bipolar disorder, unspecified; F10.10 Alcohol abuse, uncomplicated; Y90.0 Blood alcohol level of less than 20 mg/100 ml; Z79.899 Other long term (current) drug therapy; Z59.0 Homelessness; Z91.19 Patient's noncompliance with other medical treatment and regimen
CPT/HCPCS: 36415; 70450; 71045; 80053; 80305; 81001; 82550; 82553; 84484; 85025; 87081; 93005; 96360; 99285; G0480; G0482; J1644; J2060; J2765; J3490; J7030; Q0092

== ENCOUNTER 2018-02-23 14:41 | Emergency (ER) | payer OTHER ==
[~2018-02-23] VITALS: Ht 180.3 cm; Wt 77.1 kg
[~2018-02-23 14:41] MED LIST changes: +AMLO5TAB4 PO; +ISOS30TE35 PO; +LISI-424 PO; -LISI2.5T12 PO; +OLAN7.5T1 PO; +SERT100T PO
--- NOTE | 2018-02-23 17:12 | NUR ---
PATIENT AMBULATED TO BED # 5 WITH FAMILY
[2018-02-23] MEDS: ACETAMINOPHEN EXTRA STRENGTH 500 MG TAB PO ONE (18:31)
--- NOTE | 2018-02-23 18:43 | NUR ---
PATIENT PRESENTS TO ED WITH THE CHIEF C/O HEADACHE, DRY ITCHY EYES. PT STATED SYMPTOMS STARTED SINCE YESTERDAY. DENIES N/V/D; SKIN IS PINK/WARM/DRY; AAOX4 WITH EVEN AND STEADY GAIT; LUNGS CLEAR BL; HR EVEN AND REGULAR; PT DENIES ANY FEVER, CP, SOB, OR COUGH AT THIS TIME; PATIENT STATES HEADACHE 3/10 AT THIS TIME; VSS; PATIENT POSITIONED FOR COMFORT; HOB ELEVATED; BEDRAILS UP X2; BED DOWN. ER MD MADE AWARE OF PT STATUS. PT TOOK METHAMPHETAMINE 06/08GM 30 MINS BEFORE HE COME TO ER.
--- NOTE | 2018-02-23 19:16 | NUR ---
EKG PERFORMED AT BEDSIDE. PT COVERED IN GOWN AND BLANKET DURING PROCEDURE
[2018-02-23 19:21] LABS: BASOPHILS # (AUTO) 0.1 K/uL (0.00-0.22); BASOPHILS % (AUTO) 1.4 % (0.0-2.0); EOSINOPHILS # (AUTO) 0.5 K/uL (0-0.4); EOSINOPHILS % (AUTO) 8.8 % (0.0-4.0); HEMATOCRIT 41.8 % (36-52); HEMOGLOBIN 13.6 g/dL (12.0-18.0); LYMPHOCYTES # (AUTO) 1.1 K/uL (2.0-11.5); LYMPHOCYTES % (AUTO) 20.1 % (20.5-51.1); MEAN CORPUSCULAR HEMOGLOBIN 28 pg (27-31); MEAN CORPUSCULAR HGB CONC 32 g/dL (33-37); MEAN CORPUSCULAR VOLUME 85.6 fL (80-94); MONOCYTES # (AUTO) 0.3 K/uL (0.8-1.0); NEUTROPHILS # (AUTO) 3.7 K/uL (1.8-7.7); NEUTROPHILS % (AUTO) 64.7 % (42.2-75.2); PLATELET COUNT (AUTO) 214 K/uL (140-450); RED BLOOD CELL COUNT(AUTO) 4.89 MIL/uL (4.20-6.10); RED CELL DISTRIBUTION WIDTH 16.4 % (11.6-13.7); WHITE BLOOD COUNT (AUTO) 5.7 K/uL (4.8-10.8)
--- NOTE | 2018-02-23 19:21 | NUR ---
REPORT GIVEN TO HONING MACHINE OPERATOR RN DAX FOR CONTINUITY OF CARE. PT ON STABLE CONDITION.
[2018-02-23 19:28] LABS: BARBITURATE, URINE NEG. ng/ml (NEG <=200); BENZODIAZEPINE, URINE NEG. ng/mL (NEG <=200); CANNABINOID, URINE NEG. ng/mL (NEG <=50); COCAINE, URINE NEG. ng/mL (NEG <=300); OPIATE, URINE NEG. ng/mL (NEG <=2000); PHENCYCLIDINE SCREEN,URINE NEG. ng/mL (NEG <=25)
[2018-02-23 19:30] LABS: ANION GAP 13.6 (8-16); CARBON DIOXIDE 22.7 mmol/L (21-32); POTASSIUM 4.3 mmol/L (3.5-5.1)
[2018-02-23 19:33] LABS: CREATININE 4.3 mg/dL (0.7-1.3)
[2018-02-23 19:33] LABS: APPEARANCE,URINE CLEAR (CLEAR); BILIRUBIN,URINE NEGATIVE (NEGATIVE); BLOOD, URINE 1+ (NEGATIVE); COLOR,URINE YELLOW (YELLOW); LEUKOCYTE ESTERASE ,URINE NEGATIVE (NEGATIVE); NITRITE, URINE NEGATIVE (NEGATIVE); UGLUCOSE NEGATIVE (NEGATIVE)
--- NOTE | 2018-02-23 19:35 | NUR ---
RECEIVED REPORT FROM AM NURSE. PT RESTING IN BED, VS NOTED, RR EVEN AND UNLABORED, PT REPORTS "KIDNEY PAIN." ALL NEEDS MET AT THIS TIME.
[2018-02-23 19:38] LABS: ALBUMIN 4.2 g/dL (3.4-5.0); TOTAL BILIRUBIN 0.5 mg/dL (0.0-1.0)
[2018-02-23 19:45] LABS: LIPASE 133 U/L (73-393)
[2018-02-23 19:46] LABS: ACETAMINOPHEN 0.8 ug/ml (10-30); SALICYLATE 2.8 mg/dL (2.8-20.0)
[2018-02-23 20:15] LABS: RBC,URINE 0-5 (RARE) /HPF (0-5); WBC,URINE NONE SEEN /HPF (0-5)
--- NOTE | 2018-02-23 21:01 | NUR ---
PT RESTING IN BED, VS NOTED, PT DENIES PAIN AT THIS TIME. PROVIDED PT WITH FOOD AND DRINK PER REQUEST
[2018-02-23 21:20] VITALS: BP 157/106
== END 2018-02-23 21:20 | disposition home or self-care (01) ==
LOC: MED 14:41
DX: F15.10 Other stimulant abuse, uncomplicated (principal); I12.9 Hypertensive chronic kidney disease with stage 1 through stage 4 chronic kidney disease, or unspecified chronic kidney disease; N18.9 Chronic kidney disease, unspecified; E78.5 Hyperlipidemia, unspecified; F17.200 Nicotine dependence, unspecified, uncomplicated; Z79.899 Other long term (current) drug therapy
CPT/HCPCS: 36415; 70450; 71045; 80053; 80305; 81001; 83690; 83880; 84484; 85025; 93005; 99285; G0480; G0482